=== PATIENT | male | born 1945 | race Caucasian/White ===

== ENCOUNTER 2022-01-05 07:54 | Day surgery (SDC) | payer MEDICARE, BC ==
[~2022-01-05] VITALS: Ht 188 cm; Wt 102.2 kg
[2022-01-05 08:15] VITALS: BP 144/88
[2022-01-05] MEDS ORDERED: WARF-55 (08:24)
[2022-01-05] MEDS ORDERED: NIAC500C12 PO (08:24)
[2022-01-05] MEDS ORDERED: PRAV80TA3 PO (08:24)
[2022-01-05] MEDS ORDERED: tamsulosin PO (08:24)
[2022-01-05] MEDS ORDERED: NITR0.4T48 SL (08:24)
[2022-01-05] MEDS ORDERED: DIGO250T2 PO (08:24)
[2022-01-05] MEDS ORDERED: METO-384 PO (08:24)
[2022-01-05] MEDS ORDERED: LISI5TAB22 PO (08:24)
[2022-01-05] MEDS ORDERED: OSC500T PO (08:25)
[2022-01-05] MEDS ORDERED: VITA0.4T18 PO (08:27)
[2022-01-05] MEDS ORDERED: MIDAZolam 1 MG/ML 5ML VIAL ONE (08:31)
[2022-01-05] MEDS ORDERED: fentaNYL/PF 50MCG/1 ML 2ML syringe ONE (08:31)
[2022-01-05] MEDS ORDERED: LIDOcaine Viscous 15ml cup ONE (08:31)
[2022-01-05] MEDS ORDERED: epiNEPHrine 0.1mg/ml 10ml syringe ONE (09:29)
[2022-01-05 10:00] VITALS: BP 123/68
[2022-01-05 10:10] VITALS: BP 132/68
[2022-01-05 10:20] VITALS: BP 123/52
[2022-01-05 10:30] VITALS: BP 136/66
== END 2022-01-05 10:30 | disposition home or self-care (01) ==
LOC: GI LAB 07:54
PROVIDERS: ATTEND Internal Medicine Gastroenterology
DX: D50.0 Iron deficiency anemia secondary to blood loss (chronic) (principal); K64.0 First degree hemorrhoids; K29.70 Gastritis, unspecified, without bleeding; K31.811 Angiodysplasia of stomach and duodenum with bleeding
CPT/HCPCS: 43239; 43255; 45378; 99153; G0500; J0171; J2250; J3010; J7030; Z7512; 43243; 88305; 99152; A4620